=== PATIENT | male | born 1945 | race Caucasian/White ===

== ENCOUNTER 2017-10-02 12:57 | Outpatient (CLI) | payer MEDICARE, OTHER ==
--- NOTE | 2017-10-02 16:18 | PET ---
PET CT: 10/02/17 HISTORY: 71-year-old male with lung cancer. Non-small cell lung cancer. Exam requested for initial staging. Titus lr also a previous history of lung and colon cancer. Last chemoradiation therapy was in 2013. TECHNIQUE: PET scan with CT attenuation correction was performed from the base of the brain to the proximal thig hs following intravenous administration of 8.--- millicuries of F-18 fluorodeoxyglucose in the right hand. Imaging was performed after an uptake interval of 51 minutes. COMPARISON: PET CT dated 03/08/14. FINDINGS: There is juan hypermetabolism in the right supraclavicular (SUV 6.3), right pectoral (SUV 10.6), and mediastinal (SUV 10 in the paratracheal region) lymph nodes. There is hypermetabolic activity in the right hilar and perihilar mass with an SUV of 9.8. Adjacent t o this mass is another lung mass which is hypermetabolic with an SUV of 5.5. Hypermetabolic lung nodules have an SUV of 8 in the right middle lobe, 3.3 in the right lower lobe, a nd 3.5 in the superior segment of the left lower lobe. No hypermetabolic liver, adrenal or skeletal lesions are seen. There is focally intense uptake in the splenic flexure with an SUV of 17. There is physiologic activity in the GI and tracts, heart, and visualized portions of the brain. The CT scan used for attenuation correction demonstrates no evidence of pleural effusions or ascites. IMPRESSION: Findings are consistent with malignancy/metastatic disease. POS: IFRAH
== END 2017-10-02 12:58 | disposition home or self-care (01) ==
LOC: PET 12:57
PROVIDERS: ATTEND Internal Medicine Hematology & Oncology
DX: C34.90 Malignant neoplasm of unspecified part of unspecified bronchus or lung (principal)
CPT/HCPCS: 78815; A9552

== ENCOUNTER 2017-10-10 09:35 | Outpatient (CLI) | payer MEDICARE, OTHER ==
--- NOTE | 2017-10-10 11:32 | MRI ---
BRAIN MRI WITH AND WITHOUT CONTRAST: DATE: 10/10/17. COMPARISON: None available. HISTORY: Lung cancer, evaluate for intracranial metastatic disease. TECHNIQUE: Multiplanar, multisequence MR imaging of the brain is provided with and without contrast. FINDINGS: The diffusion weighted imaging demonstrates no evidence for acute infarction. The imaged paranasal sinuses/mastoid air cells appear grossly unremarkable. Arterial flow voids at axial level of skull base appear grossly unremarkable on the T2 weighted imagi ng. An intraaxial enhancing lesion is noted in the anterior superior right frontal lobe on thin section a xial image 135 measuring 4 mm. There is an enhancing lesion within the lateral aspect of the tempora l lobe on the right on thin section axial postcontrast imaging 73 measuring 5 mm. There is an enhanc ing lesion within the posterior right frontal lobe measuring 4 mm on postcontrast axial image 115. T here is no abnormal enhancement within the brainstem. There is a punctate focus of enhancement within the right cerebellar hemisphere on postcontrast thin section axial image 32 measuring approximately 3 mm. In addition, there is a punctate enhancing lesi on within the left cerebellar hemisphere on post contrast thin section axial image 40 measuring 3 mm. There is a questionable faint rim-enhancing lesion within the middle cerebellar peduncle on the lef t measuring 3-4 mm on postcontrast axial thin section image 49. There is a subtle tiny enhancing les ion within the posteromedial left occipital lobe on thin section axial postcontrast image 71 measurin g 2-3 mm. Probable tiny enhancing lesion within the medial superior left frontal lobe on image 141 m easuring 2 mm. There is an inferior medial left temporo-occipital enhancing lesion measuring 5 mm on axial image 59. There is no midline shift, mass effect, or ventricular enlargement. There is an enhancing 3 mm lesion within the superior aspect of the cerebellar vermis on the right on axial postcontrast image 69. IMPRESSION: Numerous intraaxial enhancing lesions as described above, consistent with intracranial metastatic dis ease. POS: IFRAH
[2017-10-10] MEDS ORDERED: Gadobenate Dimeglumine 529 MG/1 ML (20ML VIAL) ONE (14:32)
== END 2017-10-10 09:36 | disposition home or self-care (01) ==
LOC: MRI 09:35
PROVIDERS: ATTEND Radiology Radiation Oncology
DX: C79.31 Secondary malignant neoplasm of brain (principal); C34.90 Malignant neoplasm of unspecified part of unspecified bronchus or lung
CPT/HCPCS: 70553; 77014

== ENCOUNTER 2018-02-05 11:18 | Outpatient (CLI) | payer MEDICARE, OTHER ==
[~2018-02-05 11:18] MED LIST: Gadobenate Dimeglumine 529 MG/1 ML (20ML VIAL) ONE
--- NOTE | 2018-02-05 13:29 | MRI ---
BRAIN MRI WITH AND WITHOUT CONTRAST: 02/05/2018 HISTORY: Lung cancer. Colon cancer. Intracranial metastatic disease. Status post radiation. Restaging. COMPARISON: 10/10/2017 TECHNIQUE: Multiplanar, multisequence MR imaging of the brain is provided with and without contrast. FINDINGS: The diffusion weighted imaging demonstrates no evidence for acute infarction. Axial gradient echo im aging demonstrates no evidence for intracranial hemorrhage. There is new complete opacification of the mastoid air cells bilaterally. The imaged paranasal sinus es are unremarkable. Arterial flow voids at the axial level of the skull base appear grossly unremarkable on the T2 weight ed imaging. The prior brain MRI demonstrated numerous enhancing lesions, concerning for intracranial metastatic d isease. Of note, secondary to motion, the post contrast imaging on today's examination is limited. Prior examination demonstrated tiny enhancing lesions within the bilateral cerebellar hemispheres, wh ich cannot be discretely visualized on this examination, suggesting interval improvement in intracran ial disease. Secondary to the small size of these lesions, technical limitations must be considered as well. The largest posterior fossa lesion on the prior examination was in the region of the right cerebellar vermis, measuring 3 mm, not discretely seen on this exam. Prior examination demonstrated supratentorial lesions within the right frontal lobe, measuring up to 4 mm. On this examination, tho se lesions are not visualized. IMPRESSION: 1. The enhancing intracranial lesions concerning for metastatic disease seen on the prior examinatio n are no longer visualized. This study is limited technically secondary to motion artifact, which ma y limit detailed assessment for subcentimeter lesions. No new lesions are seen. Continued followup advised. 2. Interval development of nonspecific, complete opacification of bilateral mastoid air cells. POS: IFRAH
== END 2018-02-05 11:19 | disposition home or self-care (01) ==
LOC: MRI 11:18
PROVIDERS: ATTEND Radiology Radiation Oncology
DX: C34.90 Malignant neoplasm of unspecified part of unspecified bronchus or lung (principal); C79.31 Secondary malignant neoplasm of brain; C18.3 Malignant neoplasm of hepatic flexure; G93.9 Disorder of brain, unspecified; H93.8X3 Other specified disorders of ear, bilateral
CPT/HCPCS: 70553; 82565; A9579